=== PATIENT | female | born 1990 ===

== ENCOUNTER 2018-12-17 18:01 | Emergency (ER) | payer BC ==
[2018-12-17 18:39] VITALS: BMI 21.4
[2018-12-17 19:40] LABS: URINE APPEARANCE CLEAR (CLEAR); URINE BILIRUBIN NEGATIVE (NEGATIVE); URINE BLOOD NEGATIVE (NEGATIVE); URINE COLOR YELLOW (YELLOW); URINE GLUCOSE (UA) NEGATIVE (NEGATIVE); URINE LEUKOCYTE ESTERASE NEGATIVE Leu/uL (NEGATIVE); URINE PROTEIN TRACE mg/dL (<30 mg/dL); URINE UROBILINOGEN 0.2 E.U./dL (<1 E.U./dL)
[2018-12-17 19:44] LABS: URINE BACTERIA TRACE /hpf; URINE RBC 0 - 2 /hpf (0-2); URINE WBC 0 - 2 /hpf (0-6)
--- NOTE | 2018-12-17 19:57 | ED PDOC ---
Arrival/HPI - General Chief Complaint: Female Genitourinary Time Seen by Provider: 12/17/18 18:04 Historian: Patient - History of Present Illness Narrative History of Present Illness (Text): 12/17/18 19:51 28 year old F who is 12 wks presents complaining of dysuria with yellow discharge for a few days and possible yeast infection. Patient reports she presented to an urgent care recently where her urine was tested and given antibiotics for possible UTI. The urine cx results were negative and she was told to discontinue using the antibiotics. Patient denies abdominal pain, vaginal bleeding, fever, chills, nausea or vomiting. Patient is receiving care. Symptom Onset: Sudden Symptom Course: Unchanged Activities at Onset: Light Context: Home Past Medical History - Provider Review Nursing Documentation Reviewed: Yes - Psychiatric Hx Substance Use: No - Anesthesia Hx Anesthesia: Yes Hx Anesthesia Reactions: No Hx Malignant Hyperthermia: No Family/Social History - Physician Review Nursing Documentation Reviewed: Yes Family/Social History: Unknown Family HX Smoking Status: Never Smoked Hx Alcohol Use: No Hx Substance Use: No Allergies/Home Meds Allergies/Adverse Reactions: Allergies No Known Allergies Allergy (Verified 12/17/18 18:37) Review of Systems - Physician Review All systems were reviewed & negative as marked: Yes - Review of Systems Constitutional: absent: Fevers ENT: absent: Sore Throat, Rhinorrhea, Epistaxis Respiratory: absent: SOB, Cough, Wheezing Cardiovascular: absent: Chest Pain, Palpitations Gastrointestinal: absent: Abdominal Pain, Constipation, Diarrhea, Nausea, Vomiting Genitourinary Female: Dysuria, Vaginal Discharge (yellow). absent: Vaginal Bleeding Musculoskeletal: absent: Arthralgias, Back Pain, Neck Pain, Myalgias Skin: absent: Rash, Cellulitis Neurological: absent: Headache, Dizziness Physical Exam Pain Distress: Mild Mental Status: Positive for: Alert and Oriented X 3 - Systems Exam Head: Present: Atraumatic, Normocephalic Mouth: Present: Moist Mucous Membranes Neck: Present: Normal Range of Motion Abdomen: No: Tenderness, Distention, Peritoneal Signs Genitourinary/Pelvic Exam: Present: Normal External Genitalia, Vaginal Discharge (+thick white curd like d/c), Cervical os Closed, Other (Female EMT Pavan was 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 No: Vaginal Bleeding, Vaginal Lesions, Adenexal Tenderness, Adenexal Mass, Cervical Motion Tendernes, Odor Back: Present: Normal Inspection Upper Extremity: Present: Normal Inspection. No: Cyanosis, Edema Lower Extremity: Present: Normal Inspection. No: Edema Neurological: Present: GCS=15, CN II-XII Intact, Speech Normal Skin: Present: Warm, Dry, Normal Color. No: Rashes Psychiatric: Present: Alert, Oriented x 3, Normal Insight, Normal Concentration Medical Decision Making ED Course and Treatment: 12/17/18 19:51 Impression: 28 year old F presents complaining of dysuria with yellow discharge for a few days and possible yeast infection. Plan: -- Urinalysis -- Reassess and disposition Prior Visits: Notes and results from previous visits were reviewed. Patient was last seen in the emergency department on Progress Notes: Urinalysis (-) for infection. Pelvic exam revealed vaginal candidiasis, patient made aware of diagnoses. Advised to follow up with OB physician in 1-2 days without fail. Advised to take medication as prescribed. Return to the emergency room at any time for any new or worsening symptoms. Patient states she fully agrees with and understands discharge instructions. States that she agrees with the plan and disposition. Verbalized and repeated discharge instructions and plan. I have given the patient opportunity to ask any additional questions. - Lab Interpretations Lab Results: Urine Color Yellow (YELLOW) 12/17/18 18:56 Urine Appearance Clear (CLEAR) 12/17/18 18:56 Urine pH 6.0 (4.7-8.0) 12/17/18 18:56 Ur Specific [place] >= 1.030 (1.005-1.035) 12/17/18 18:56 Urine Protein Trace mg/dL (<30 mg/dL) H 12/17/18 18:56 Urine Glucose (UA) Negative mg/dL (NEGATIVE) 12/17/18 18:56 Urine Ketones 15 mg/dL (NEGATIVE) H 12/17/18 18:56 Urine Blood Negative (NEGATIVE) 12/17/18 18:56 Urine Nitrate Negative (NEGATIVE) 12/17/18 18:56 Urine Bilirubin Negative (NEGATIVE) 12/17/18 18:56 Urine Urobilinogen 0.2 E.U./dL (<1 E.U./dL) 12/17/18 18:56 Ur Leukocyte Esterase Negative Romie/uL (NEGATIVE) 12/17/18 18:56 Urine RBC 0 - 2 /hpf (0-2) 12/17/18 18:56 Urine WBC 0 - 2 /hpf (0-6) 12/17/18 18:56 Ur Epithelial Cells 1 - 3 /hpf (0-5) 12/17/18 18:56 Urine Bacteria Trace /hpf (NONE) 12/17/18 18:56 - PA / RIG BUILDER / Resident Statement MD/DO has reviewed & agrees with the documentation as recorded. - Scribe Statement The provider has reviewed the documentation as recorded by the Christina Rosado All medical record entries made by the Christina were at my direction and personally dictated by me. I have reviewed the chart and agree that the record accurately reflects my personal performance of the history, physical exam, medical decision making, and the department course for this patient. I have also personally directed, reviewed, and agree with the discharge instructions and disposition. Disposition/Present on Arrival - Present on Arrival Any Indicators Present on Arrival: No History of DVT/PE: No History of Uncontrolled Diabetes: No Urinary Catheter: No History of Decub. Ulcer: No History Surgical Site Infection Following: None - Disposition Have Diagnosis and Disposition been Completed?: Yes Diagnosis: Vaginal candidiasis Disposition: HOME/ ROUTINE Disposition Time: 20:00 Patient Plan: Discharge Condition: STABLE Discharge Instructions (ExitCare): Vulvovaginal Yeast Infection Additional Instructions: Thank you for letting us take care of you today. You were treated for vaginal candidiasis. The emergency medical care you received today was directed at your acute symptoms. If you were prescribed any medication, please fill it and take as directed. It may take several days for your symptoms to resolve. Return to the Emergency Department if your symptoms worsen, do not improve, or if you have any other problems. Please contact your doctor in 2 days for re-evaluation and follow up. Bring any paperwork you were given at discharge with you along with any medications you are taking to your follow up visit. Our treatment cannot replace ongoing medical care by a primary care provider (PCP) outside of the emergency department. Thank you for allowing the [facility] team to be part of your care today. If you had a urine culture: It will take several days for the results, if any change in treatment is needed we will contact you. Prescriptions: Clotrimazole 1% Cream [Lotrimin 1%] 30 applic EXT DAILY #1 tube Terconazole 0.8% [Terazol 3 (0.8%)] 1 ea VG QPM #3 tube Forms: [facility] (Hungarian), WORK NOTE
[2018-12-18 02:54] VITALS: BP 117/65; PULSE 68; RESP 14; TEMP 98.1; O2SAT 98
== END 2018-12-17 20:42 | disposition home or self-care (01) ==
LOC: ED 18:01
DX: O98.811 Other maternal infectious and parasitic diseases complicating pregnancy, first trimester (principal); B37.9 Candidiasis, unspecified; Z3A.12 12 weeks gestation of pregnancy